=== PATIENT | male | born 1990 | race African-American/Black ===

== ENCOUNTER 2016-08-19 03:44 | Emergency (ER) | payer OTHER ==
[~2016-08-19] VITALS: Ht 180.3 cm; Wt 75.0 kg
[~2016-08-19 03:44] MED LIST: CYCL1TAB29 PO; IBUP800T23 PO
[2016-08-19 03:50] VITALS: BP 139/88; PULSE 63; RESP 20; TEMP 97.7; O2SAT 100
[2016-08-19 04:14] LABS: BLOOD, URINE NEG (NEG); COMMENT (UR) CULT NOT INDICATED; CULTURE IF INDICATED CULT NOT INDICATED; GLUCOSE,URINE NEG (NEG); KETONE, URINE NEG (NEG); MUCUS URINE FEW /lpf (OCC); NITRITE,URINE NEG (NEG); PH, URINE 5.5 (5.0-8.5); SQUAMOUS EPITHELIAL CELL URINE <1 /hpf (0-5); URINE COLOR YELLOW (YELLW/STRAW)
[2016-08-19] MEDS ORDERED: DOXY100C PO (04:23)
--- NOTE | 2016-08-19 04:23 | PD ---
HPI Chief Complaint: Complaint Time Seen by Provider: 04:22 Travel History International Travel<30 days: No Contact w/Intl Traveler<30days: No Traveled to known affect area: No History of Present Illness HPI 25-year-old male with no significant medical history presents to the emergency department for evaluation of possible UTI. Patient states he began having burning with urination yesterday. Denies any penile discharge. States he is in a monogamous relationship with his current girlfriend. Denies abdominal pain. No fever or chills. No other symptoms to report. PFSH Past Medical History Medical History: Denies Significant Hx Diminished Hearing: No Immunizations Current: No Tetanus Vaccination: Unknown Influenza Vaccination: No Past Surgical History Other Surgery: Yes (hernia repair) Social History Alcohol Use: No Tobacco Use: No Substance Use: No Allergies-Medications (Allergen,Severity, Reaction): Coded Allergies: No Known Allergies (Unverified , 08/19/16) Reported Meds & Prescriptions Reported Meds & Active Scripts Active Doxycycline Hyclate 100 Mg Cap 100 Mg PO BID 7 Days Review of Systems Except as stated in HPI: all other systems reviewed are Neg Physical Exam Narrative GENERAL: Well-nourished, well-developed male patient in no acute distress SKIN: Focused skin assessment warm/dry. HEAD: Normocephalic. EYES: No scleral icterus. No injection or drainage. NECK: Supple, trachea midline. No JVD or lymphadenopathy. CARDIOVASCULAR: Regular rate and rhythm without murmurs, gallops, or rubs. RESPIRATORY: Breath sounds equal bilaterally. No accessory muscle use. GASTROINTESTINAL: Abdomen soft, non-tender, nondistended. MUSCULOSKELETAL: No cyanosis, or edema. BACK: Nontender without obvious deformity. No CVA tenderness. Data Data Last Documented VS Vital Signs Date Time Temp Pulse Resp B/P Pulse Ox O2 Delivery O2 Flow Rate FiO2 08/19/16 03:50 97.7 63 20 139/88 100 Orders Urinalysis - C+S If Indicated (08/19/16 03:50) Gc And Chlamydia Pcr (08/19/16 03:50) Labs Laboratory Tests Test 08/19/16 03:52 Urine Color YELLOW Urine Turbidity CLEAR Urine pH 5.5 Urine Specific [place] 1.008 Urine Protein NEG mg/dL Urine Glucose (UA) NEG mg/dL Urine Ketones NEG mg/dL Urine Occult Blood NEG Urine Nitrite NEG Urine Bilirubin NEG Urine Urobilinogen LESS THAN 2.0 MG/DL Urine Leukocyte Esterase TRACE Urine RBC LESS THAN 1 /hpf Urine WBC 2 /hpf Urine Squamous Epithelial <1 /hpf Cells Urine Mucus FEW /lpf Microscopic Urinalysis Comment CULT NOT INDICATED MDM Medical Decision Making Medical Screen Exam Complete: Yes Emergency Medical Condition: Yes Medical Record Reviewed: Yes Differential Diagnosis Cystitis versus urethritis versus pyelonephritis versus STD Narrative Course 19-year-old male presents to the emergency department for evaluation of burning with urination. Penile exam is deferred as patient is insistent that he does not have an STD. Urinalysis is sent with trace leukocyte esterase and few mucus. Culture is not indicated. GC PCR is pending. I have offered empiric treatment but the patient states that he is not concerned about an STD, however his girlfriend remains in the room during the entire exam. Regardless he'll be started on doxycycline. He agrees to return immediately with any acute worsening symptoms. Diagnosis Primary Impression: Dysuria Referrals: Primary Care Physician Patient Instructions: Dysuria (ED), General Instructions Additional Instructions: Maintain adequate oral hydration Follow-up with a primary care provider Return immediately with any acute worsening of symptoms Med/Other Pt SpecificInfo: Prescription(s) given Scripts Doxycycline Hyclate 100 Mg [id number] Mg PO BID 7 Days Ref 0 Prov:Meagan Ruiz 08/19/16 Disposition: 01 DISCHARGE HOME Condition: Stable Meagan Ruiz August 19, 2016 04:23
[2016-08-19 06:11] LABS: CHLAMYDIA PCR NOT DETECTED (NOT DETECT); NEISSERIA PCR NOT DETECTED (NOT DETECT)
== END 2016-08-19 05:24 | disposition home or self-care (01) ==
LOC: NEPK 03:44
DX: R30.0 Dysuria (principal)
CPT/HCPCS: 81001; 87491; 87591; 99283